=== PATIENT | male | born 1990 ===

== ENCOUNTER 2025-04-18 00:36 | Inpatient (IN) | payer MEDICAID, OTHER ==
[~2025-04-18] VITALS: Ht 172.7 cm; Wt 64.9 kg
[2025-04-18 01:22] LABS: PLATELET COUNT (AUTO) 263 K/uL (150-450); RED BLOOD CELL COUNT(AUTO) 5.07 MIL/uL (4.50-5.90); RED CELL DISTRIBUTION WIDTH 13.2 % (11.5-14.5); WHITE BLOOD COUNT (AUTO) 7.8 K/uL (4.5-11.0)
[2025-04-18] MEDS: NALOXONE HCL 1 MG/ML 2 ML SYRINGE IVP ONE (01:29)
[2025-04-18 01:36] LABS: CALCIUM, TOTAL 9.4 mg/dL (8.8-10.5); CREATININE 0.87 mg/dL (0.60-1.30); GLOMERULAR FILTR. RATE CALC > 60 mL/min (>60); GLUCOSE,RANDOM 96 mg/dL (70-110); SODIUM SERUM 138 mmol/L (136-145); UREA NITROGEN, BLOOD 20 mg/dL (7-18)
[2025-04-18 01:40] LABS: ASPARTATE AMINOTRANSFERASE 79 U/L (15-37); TOTAL PROTEIN, SERUM 8.6 g/dL (6.4-8.2)
[2025-04-18 01:45] LABS: TROPONIN I-HIGH SENSITIVITY 66 ng/L (<76)
[2025-04-18 01:46] LABS: ALCOHOL, BLOOD (SERUM) < 3 mg/dL (0-10)
[2025-04-18 02:28] LABS: APPEARANCE,URINE CLEAR (CLEAR); GLUCOSE, URINE (UA) NEGATIVE (NEGATIVE); LEUKOCYTE ESTERASE ,URINE NEGATIVE (NEGATIVE); NITRATE,URINE NEGATIVE (NEGATIVE); OCCULT BLOOD,URINE NEGATIVE (NEGATIVE); PH,URINE DRUG SCREEN 6.0 (5.0-8.0); SPECIFIC GRAVITIY, URINE 1.034 (1.003-1.030)
[2025-04-18 02:30] LABS: COVID AG,FIA SOURCE NASAL SWAB; SARS-COV2 (COVID) ANTIGEN,FIA Negative (Negative)
[2025-04-18 02:32] LABS: ALCOHOL, URINE DRUG SCREEN NEGATIVE (NEGATIVE); AMPHET/METH SCREEN,URINE NEGATIVE (NEGATIVE); BARBITURATE SCREEN, URINE NEGATIVE (NEGATIVE); CANNABINOID SCREEN,URINE NEGATIVE (NEGATIVE); COCAINE SCREEN,URINE NEGATIVE (NEGATIVE); METHADONE SCREEN, URINE NEGATIVE (NEGATIVE)
[2025-04-18 09:54] VITALS: O2SAT 97
[2025-04-18] MEDS ORDERED: PROMETHAZINE HCL 25 MG TABLET PO PRN (12:00)
[2025-04-18] MEDS ORDERED: GuaiFENesin/D-METHORPHAN [SUGAR-FREE] 200-20MG/10 ML SYRUP UDCUP PO PRN (12:00)
[2025-04-18] MEDS ORDERED: MAGNESIUM HYDROXIDE SUSPENSION 30 ML UDCUP PO PRN (12:00)
[2025-04-18] MEDS ORDERED: LOPERAMIDE HCL 2 MG CAPSULE PO PRN (12:00)
[2025-04-18] MEDS ORDERED: MAG HYDROX/ALUMINUM HYD/SIMETH ES 30 ML SUSPENSION UDCUP PO PRN (12:00)
[2025-04-18 12:34] VITALS: BP 110/80; PULSE 75; RESP 16; TEMP 99.7; O2SAT 97
[2025-04-18] MEDS: THIAMINE 100 MG TABLET PO SCH (16:55)
[2025-04-18] MEDS: TUBERCULIN, PURIFIED PROTEIN DERIVATIVE 5 TU/0.1 ML SYRINGE ID ONE (17:35)
[2025-04-18 20:37] VITALS: BP 116/74; PULSE 65; RESP 18; TEMP 97.7; O2SAT 98
[2025-04-18] MEDS: MELATONIN 5 MG TABLET PO SCH (20:57)
[2025-04-19 08:39] VITALS: BP 106/68; PULSE 67; RESP 18; TEMP 97.5; O2SAT 100
[2025-04-19] MEDS: FOLIC ACID 1 MG TABLET PO SCH (09:07)
[2025-04-19] MEDS: MULTIVITAMINS WITH MINERALS, THERAPEUTIC TABLET PO SCH (09:07)
[2025-04-19 09:24] LABS: CHOL/HDL RATIO 2.9 (4.2-7.3); LDL CHOL (CALC.) 102.0 mg/dL (0-130)
[2025-04-19] MEDS ORDERED: OLANZapine 5 MG RAPDIS TABLET PO PRN (16:00)
[2025-04-19 20:25] VITALS: BP 105/64; PULSE 73; RESP 18; TEMP 97.7; O2SAT 100
[2025-04-19] MEDS: ACETAMINOPHEN 325 MG TABLET PO PRN (21:10)
[2025-04-19] MEDS: OLANZapine 5 MG RAPDIS TABLET PO SCH (21:10)
[2025-04-20 08:12] VITALS: BP 90/64; PULSE 61; RESP 15; TEMP 97.5; O2SAT 98
[2025-04-20] MEDS: ATOMOXETINE HCL 10 MG CAPSULE PO SCH (09:32)
[2025-04-20 20:24] VITALS: BP 109/62; PULSE 69; RESP 17; TEMP 97.9; O2SAT 98
[2025-04-20] MEDS: ZOLPIDEM TARTRATE 10 MG TABLET PO PRN (20:43)
[2025-04-21 01:07] LABS: HEPATITIS B CORE IGM Negative (Negative); HEPATITIS C AB (EIA) Non Reactive (Non Reactive)
[2025-04-21 08:02] VITALS: BP 113/78; PULSE 79; RESP 18; TEMP 97.7; O2SAT 97
[2025-04-21 20:41] VITALS: BP 99/64; PULSE 69; RESP 18; TEMP 97.6; O2SAT 98
[2025-04-22 08:06] VITALS: BP 122/81; PULSE 79; RESP 18; TEMP 98.2; O2SAT 98
[2025-04-22 20:31] VITALS: BP 110/80; PULSE 70; RESP 17; TEMP 98; O2SAT 98
[2025-04-23 08:43] VITALS: BP 132/81; PULSE 79; RESP 18; TEMP 98.7; O2SAT 98
[2025-04-23 21:11] VITALS: BP 118/72; PULSE 66; RESP 18; TEMP 98.1; O2SAT 98
[2025-04-24 08:35] VITALS: BP 107/62; PULSE 67; RESP 17; TEMP 97.2; O2SAT 98
[2025-04-24] MEDS ORDERED: FLUO-418 PO (16:11)
[2025-04-24] MEDS ORDERED: MELA5TAB40 PO (16:11)
[2025-04-24] MEDS ORDERED: OLAN5TAB94 PO (16:11)
[2025-04-24] MEDS ORDERED: ATOM10CA4 PO (16:11)
[2025-04-24] MEDS ORDERED: TRAZ-252 PO (16:11)
[2025-04-24 20:31] VITALS: BP 106/69; PULSE 75; RESP 16; TEMP 98.1; O2SAT 98
[2025-04-25 08:38] VITALS: BP 101/72; PULSE 73; RESP 16; TEMP 98.2; O2SAT 100
== END 2025-04-25 15:24 | disposition home or self-care (01) | DRG 761 ==
LOC: EMS 00:38 → B2S 09:33 → B3A 10:00 → B2S 10:32 → B3A 13:55
PROVIDERS: ADMIT Psychiatry & Neurology Psychiatry; ATTEND Psychiatry & Neurology Psychiatry
PROC: GZHZZZZ Group Psychotherapy (ICD-10-PCS; principal; 2025-04-18)
PROC: GZ58ZZZ Individual Psychotherapy, Cognitive-Behavioral (ICD-10-PCS; 2025-04-18)
PROC: GZ56ZZZ Individual Psychotherapy, Supportive (ICD-10-PCS; 2025-04-19)
DX: F25.9 Schizoaffective disorder, unspecified (principal); F33.2 Major depressive disorder, recurrent severe without psychotic features; F41.9 Anxiety disorder, unspecified; Z60.8 Other problems related to social environment; G47.00 Insomnia, unspecified; R45.851 Suicidal ideations; T39.1X2A Poisoning by 4-Aminophenol derivatives, intentional self-harm, initial encounter; Z20.822 Contact with and (suspected) exposure to COVID-19; F10.90 Alcohol use, unspecified, uncomplicated; Y90.0 Blood alcohol level of less than 20 mg/100 ml; Z79.899 Other long term (current) drug therapy; Z55.9 Problems related to education and literacy, unspecified; Z59.00 Homelessness unspecified; Z63.9 Problem related to primary support group, unspecified; Z65.3 Problems related to other legal circumstances; Y92.89 Other specified places as the place of occurrence of the external cause; Z72.0 Tobacco use
CPT/HCPCS: 51701; 80048; 80061; 80074; 80076; 80307; 81003; 83036; 84484; 85025; 86592; 93005; G0480; G0481; J2312